=== PATIENT | female | born 1960 ===

== ENCOUNTER → 2020-11-14 | Day surgery (SDC) | payer OTHER ==
[~2020-11-14] MED LIST: ATACAND16 MG PO; DERMOPLAST PAIN78 GM TOP; DILTIAZEM 24HR180 MG PO; ELAVIL PO; HORIZANT300 MG PO; NEURONTIN300 MG PO; PEPCID AC20 MG PO; PERCOCET 5-3251 EACH PO; ZANAFLEX4 M1 PO
== END | disposition home or self-care (01) ==
LOC: U 11-07 11:15 → ADM 11-07 11:30 → CIR.AMB 06:05
PROVIDERS: ATTEND Surgery
DX: K64.4 Residual hemorrhoidal skin tags (principal); K64.8 Other hemorrhoids; Z20.822 Contact with and (suspected) exposure to COVID-19